=== PATIENT | male | born 1995 | race Hispanic/Latino ===

== ENCOUNTER 2017-07-26 22:31 | Emergency (ER) | payer BC ==
[2017-07-26 22:56] VITALS: BP 103/67; PULSE 77; RESP 18; TEMP 98.6; O2SAT 99; BMI 21.1
[2017-07-26] MEDS ORDERED: Sodium Chloride 0.9% 1,000 ML IV STA (23:41)
[2017-07-26] MEDS ORDERED: DiphenhydrAMINE 50 mg/ml Inj IVP STA (23:42)
--- NOTE | 2017-07-26 23:45 | ED PDOC ---
Arrival/HPI - General Chief Complaint: Headache Time Seen by Provider: 07/26/17 23:32 Historian: Patient - History of Present Illness Narrative History of Present Illness (Text): 07/26/17 23:42 22yo male with no Past medical history present with complaint of "pulsating" headache, nausea, vomiting, photophobia. Headache started 5daysago and n/n started 2days ago. He was seen by his PMD and started on Topomax and Zofran today, but couldn't keep it down. He denies trauma, focal weakness, dizziness, facial drooping, any other complaint. Past Medical History - Provider Review Nursing Documentation Reviewed: Yes - Tetanus Immunization Tetanus Immunization: Up to Date - Past Medical History Past Medical History: Non-Contributing - Psychiatric Hx Depression: No Hx Emotional Abuse: No Hx Physical Abuse: No Hx Substance Use: No - Past Surgical History Past Surgical History: No Previous - Suicidal Assessment Feels Threatened In Home Enviroment: No Family/Social History - Physician Review Nursing Documentation Reviewed: Yes Family/Social History: Unknown Family HX Smoking Status: Light Smoker < 10 Cigarettes Daily Hx Alcohol Use: Yes Frequency of alcohol use: Socially Hx Substance Use: No Hx Substance Use Treatment: No Allergies/Home Meds Allergies/Adverse Reactions: Allergies avocado Allergy (Verified 07/26/17 22:55) ANAPHYLAXIS codeine Allergy (Verified 07/26/17 22:55) RASH Penicillins Allergy (Verified 07/26/17 22:55) RASH Review of Systems - Physician Review All systems were reviewed & negative as marked: Yes - Review of Systems Constitutional: Normal Eyes: Normal ENT: Normal Respiratory: Normal Cardiovascular: Normal Gastrointestinal: Normal Genitourinary Male: Normal Musculoskeletal: Normal Skin: Normal Neurological: Headache. absent: Dizziness, Focal Weakness, Speech Changes, Facial Droop Endocrine: Normal Hemo/Lymphatic: Normal Psychiatric: Normal Physical Exam Vital Signs Reviewed: Yes Vital Signs Temp Pulse Resp BP Pulse Ox 07/26/17 22:55 98.6 F 77 18 103/67 99 Temperature: Afebrile Blood Pressure: Normal Pulse: Regular Respiratory Rate: Normal Appearance: Positive for: Well-Appearing, Non-Toxic, Comfortable Pain Distress: None Mental Status: Positive for: Alert and Oriented X 3 - Systems Exam Head: Present: Atraumatic, Normocephalic Pupils: Present: PERRL Extroacular Muscles: Present: EOMI Conjunctiva: Present: Normal Mouth: Present: Moist Mucous Membranes Neck: Present: Normal Range of Motion Respiratory/Chest: Present: Clear to Auscultation, Good Air Exchange. No: Respiratory Distress, Accessory Muscle Use Cardiovascular: Present: Regular Rate and Rhythm, Normal S1, S2. No: Murmurs Abdomen: Present: Normal Bowel Sounds. No: Tenderness, Distention, Peritoneal Signs Back: Present: Normal Inspection Upper Extremity: Present: Normal Inspection. No: Cyanosis, Edema Lower Extremity: Present: Normal Inspection. No: Edema Neurological: Present: GCS=15, CN II-XII Intact, Speech Normal, Motor Func Grossly Intact, Normal Sensory Function, Normal Cerebellar Funct, Norm Deep Tendon Reflexes, Gait Normal, Memory Normal, Normal 2Pt Descrimination, Other ( No focal neurologixal deficit) Skin: Present: Warm, Dry, Normal Color. No: Rashes Psychiatric: Present: Alert, Oriented x 3, Normal Insight, Normal Concentration Medical Decision Making ED Course and Treatment: 07/27/17 02:04 On re evaluation pt's headache improved. He remain neurologically intact. Head Ct FINDINGS: Brain: No intracranial hemorrhage. No mass. No definite edema. Ventricles: No hydrocephalus. Bones/joints: No acute fracture. Soft tissues: Unremarkable. Sinuses: Scattered mild mucosal thickening of ethmoid sinuses. Few maxillary retention cysts. Mastoid air cells: No mastoid effusion. Orbits: Unremarkable as visualized. IMPRESSION: 1. No acute intracranial abnormality. 2. Sinus disease PT was placed on abx secondary to the incidental sinus finding. He was advised to continue with the mediation given by his PMD and referred to a Neuro[facility] emergency department for any new or worsening symptoms. Lab was unremarkable. - Lab Interpretations Lab Results: 07/27/17 00:19 07/27/17 00:19 Lab Results 07/27/17 00:19: Sodium 137, Potassium 3.7, Chloride 101, Carbon Dioxide 24, Anion Gap 16, BUN 11, Creatinine 0.8, Est GFR ( Amer) > 60, Est GFR (Non- Af Amer) > 60, Random Glucose 104, Calcium 9.8, Total Bilirubin 0.9, AST 25, ALT 45, Alkaline Phosphatase 69, Total Protein 7.9, Albumin 4.7, Globulin 3.2, Albumin/Globulin Ratio 1.5 07/27/17 00:19: WBC 10.4, RBC 4.29, Hgb 13.0 L, Hct 37.9 L, MCV 88.3, MCH 30.3, MCHC 34.3, RDW 12.8, Plt Count 185, MPV 10.1, Gran % 78.5 H, Lymph % (Auto) 11.0 L, Humphreys % (Auto) 10.2 H, Eos % (Auto) 0.2 L, Baso % (Auto) 0.1, Gran # 8.18 H, Lymph # 1.1 L, Humphreys # 1.1 H, Eos # 0.0, Baso # 0.01 - RAD Interpretation Radiology Orders: 07/26/17 23:41 HEAD W/O CONTRAST [CT] Stat - Medication Orders Current Medication Orders: Discontinued Medications Diphenhydramine HCl (Benadryl) 25 mg IVP STAT STA Stop: 07/26/17 23:43 Last Admin: 07/27/17 00:22 Dose: 25 mg IVP Administration Document 07/27/17 00:22 OCS (Rec: 07/27/17 00:22 OCS [id number]) Charges for Administration # of IVP Administrations 1 Sodium Chloride (Sodium Chloride 0.9%) 1,000 mls @ 999 mls/hr IV .Q1H1M STA Stop: 07/27/17 00:41 Last Admin: 07/27/17 00:22 Dose: 999 mls/hr eMAR Start Stop Document 07/27/17 00:22 OCS (Rec: 07/27/17 00:22 OCS [id number]) Intravenous Solution Start Date 07/27/17 Start Time 00:22 Ketorolac Tromethamine (Toradol) 30 mg IVP STAT STA Stop: 07/26/17 23:42 Last Admin: 07/27/17 00:22 Dose: 30 mg MAR Pain Assessment Document 07/27/17 00:22 OCS (Rec: 07/27/17 00:22 OCS [id number]) Pain Reassessment Is this a pain reassessment? Yes Sleep Is patient sleeping during reassessment? No Presence of Pain Presence of Pain Yes IVP Administration Document 07/27/17 00:22 OCS (Rec: 07/27/17 00:22 OCS [id number]) Charges for Administration # of IVP Administrations 1 Metoclopramide HCl (Reglan) 10 mg IVP STAT STA Stop: 07/26/17 23:43 Last Admin: 07/27/17 00:22 Dose: 10 mg IVP Administration Document 07/27/17 00:22 OCS (Rec: 07/27/17 00:22 OCS [id number]) Charges for Administration # of IVP Administrations 1 Disposition/Present on Arrival - Present on Arrival Any Indicators Present on Arrival: No History of DVT/PE: No History of Uncontrolled Diabetes: No Urinary Catheter: No History of Decub. Ulcer: No History Surgical Site Infection Following: None - Disposition Have Diagnosis and Disposition been Completed?: Yes Diagnosis: Headache, Sinusitis Disposition: HOME/ ROUTINE Disposition Time: 01:30 Patient Plan: Discharge Patient Problems: Current Active Problems Problem Status Onset Headache Acute Sinusitis Acute Condition: STABLE Discharge Instructions (ExitCare): Sinusitis (ED), Acute Headache (ED) Additional Instructions: Follow up with your Doctor/Neurologist Return to emergency department for any new or worsening symptoms Prescriptions: Clindamycin [Cleocin] 300 mg PO TID #21 cap Referrals: Jeremy Catalan MD [Staff Provider] - Follow up with primary Forms: [employer] ([place])
[2017-07-27 00:39] LABS: BASO # 0.01 K/mm3 (0.0-2.0); BASO % 0.1 % (0.0-3.0); EOS % 0.2 % (1.5-5.0); GRAN # 8.18 (1.4-6.5); GRAN % 78.5 % (50.0-68.0); HEMATOCRIT 37.9 % (42.0-52.0); LYMPH # 1.1 (1.2-3.4); MEAN CELL VOLUME 88.3 fl (80.0-105.0); MEAN CORPUSCULAR HEMOGLOBIN 30.3 pg (25.0-35.0); MEAN CORPUSCULAR HGB CONC 34.3 g/dl (31.0-37.0); MEAN PLATELET VOLUME 10.1 fl (7.0-11.0); MONO # 1.1 (0.1-0.6); MONO % 10.2 % (1.0-6.0); RED CELL DISTRIBUTION WIDTH 12.8 % (11.5-14.5); WHITE BLOOD COUNT 10.4 10^3/ul (4.5-11.0)
[2017-07-27 00:50] LABS: ALB/GLOB RATIO 1.5 (1.1-1.8); ALKALINE PHOSPHATASE 69 U/L (38-126); ALT/SGPT 45 U/L (7-56); AST/SGOT 25 U/L (17-59); BILIRUBIN,TOTAL 0.9 mg/dL (0.2-1.3); BLOOD UREA NITROGEN 11 mg/dL (7-21); CALCIUM 9.8 mg/dL (8.4-10.5); CARBON DIOXIDE 24 mmol/L (21-33); CHLORIDE 101 mmol/L (95-110); GFR AFRICAN-AMERICAN > 60; GLUCOSE,RANDOM 104 mg/dL (70-110); POTASSIUM 3.7 mmol/L (3.6-5.0); SODIUM 137 mmol/L (132-148); TOTAL PROTEIN 7.9 g/dL (5.8-8.3)
--- NOTE | 2017-07-27 01:05 | CT ---
EXAM: CT Head Without Intravenous Contrast CLINICAL HISTORY: 22 years old, male; Pain; Headache; Headache not specified TECHNIQUE: Axial computed tomography images of the head/brain without intravenous contrast. All CT scans at this facility use one or more dose reduction techniques, viz.: automated exposure control; ma/kV adjustment per patient size (including targeted exams where dose is matched to indication; i.e. head); or iterative reconstruction technique. COMPARISON: No relevant prior studies available. FINDINGS: Brain: No intracranial hemorrhage. No mass. No definite edema. Ventricles: No hydrocephalus. Bones/joints: No acute fracture. Soft tissues: Unremarkable. Sinuses: Scattered mild mucosal thickening of ethmoid sinuses. Few maxillary retention cysts. Mastoid air cells: No mastoid effusion. Orbits: Unremarkable as visualized. IMPRESSION: 1. No acute intracranial abnormality. 2. Sinus disease.
== END 2017-07-27 01:30 | disposition home or self-care (01) ==
LOC: ED 22:31
DX: R51 Headache (principal); J32.9 Chronic sinusitis, unspecified; F17.210 Nicotine dependence, cigarettes, uncomplicated; Z88.0 Allergy status to penicillin
CPT/HCPCS: 70450; 80053; 85025; 96374; 96375; 99285; J1200; J1885; J2765; J7040